=== PATIENT | male | born 2000 | race Two or more races ===

== ENCOUNTER 2025-05-18 09:39 | Emergency (ER) | payer OTHER, BC ==
[2025-05-18] MEDS: Diphtheria,Pertussis(Acell),Tetanus Vaccine 0.5 ML Syringe IM ONE (10:28)
== END 2025-05-18 11:51 | disposition home or self-care (01) ==
LOC: MW.ED 09:39
DX: S62.600A Fracture of unspecified phalanx of right index finger, initial encounter for closed fracture (principal); S61.210A Laceration without foreign body of right index finger without damage to nail, initial encounter; Z23 Encounter for immunization; Z88.0 Allergy status to penicillin; W23.0XXA Caught, crushed, jammed, or pinched between moving objects, initial encounter; Y92.89 Other specified places as the place of occurrence of the external cause; Y99.0 Civilian activity done for income or pay
CPT/HCPCS: 12001; 73140; 90471; 90715; 99283; J2003

== ENCOUNTER 2025-05-21 11:27 | Emergency (ER) | payer OTHER, BC | END 2025-05-21 13:08 | disposition home or self-care (01) | LOC: MW.ED 11:27 | DX: S61.210D Laceration without foreign body of right index finger without damage to nail, subsequent encounter (principal); Z88.0 Allergy status to penicillin; Z79.899 Other long term (current) drug therapy; Z75.3 Unavailability and inaccessibility of health-care facilities; X58.XXXD Exposure to other specified factors, subsequent encounter | CPT/HCPCS: 99282 ==